=== PATIENT | female | born 1930 | race Caucasian/White ===

== ENCOUNTER 2021-04-03 17:05 | Inpatient (IN) | payer MEDICARE ==
[2021-04-03] MEDS ORDERED: SODIUM CHLORIDE 0.9% 500 ML INFUS.BAG IV ONE ×2 (17:18→18:07)
[2021-04-03 17:59] LABS: BASO % 0.3 % (0-2.0); EOS % 0.2 % (0-4.5); HEMATOCRIT 34.2 % (32.4-45.2); HEMOGLOBIN 11.1 GM/dl (10.7-15.3); LYMPH % 14.3 % (8-40); MCH 30.1 pg (25.7-33.7); MCHC 32.5 g/dl (32.0-36.0); MEAN CELL VOLUME 92.5 fl (80-96); MEAN PLT VOLUME 7.2 fl (7.5-11.1); MONO % 6.5 % (3.8-10.2); NEUT % 78.7 % (42.8-82.8); PLATELET COUNT 434 10^3/uL (134-434); WHITE BLOOD COUNT 10.4 K/mm3 (4.0-10.8)
[2021-04-03 18:02] LABS: ALK PHOS 71 U/L (45-117); ANION GAP 14 MMOL/L (8-16); BILIRUBIN,TOTAL 0.5 mg/dl (0.2-1); CALCIUM 8.2 mg/dl (8.5-10); CHLORIDE 76 mmol/L (98-107); CO2 22 mmol/L (21-32); CREATININE 0.7 mg/dl (0.55-1.3); GLUCOSE,RANDOM 113 mg/dl (74-106); MAGNESIUM 1.9 mg/dL (1.8-2.4); PHOSPHOROUS 3.9 mg/dl (2.5-4.9); SGOT/AST 21 U/L (15-37); SGPT/ALT 14 U/L (13-61); TOT PROT 6.5 g/dl (6.4-8.2)
[2021-04-03 18:04] LABS: SODIUM 112 mmol/L (136-145)
[2021-04-03 19:48] LABS: ALBUMIN 2.6 g/dl (3.4-5.0); BILIRUBIN,TOTAL 0.7 mg/dl (0.2-1); CALCIUM 7.4 mg/dl (8.5-10); CREATININE 0.6 mg/dl (0.55-1.3); TOT PROT 5.8 g/dl (6.4-8.2)
[2021-04-03] MEDS ORDERED: SODIUM CHLORIDE 1,000 ML IV SCH (20:15)
[2021-04-03 20:25] LABS: EPITHELIAL CELLS FEW /hpf
[2021-04-03 23:27] LABS: CALCIUM 7.5 mg/dl (8.5-10); CREATININE 0.6 mg/dl (0.55-1.3)
[2021-04-04] MEDS ORDERED: SODIUM CHLORIDE 1,000 ML IV SCH (00:06)
[2021-04-04 06:29] LABS: BLOOD UREA NITROGEN 13.9 mg/dL (7-18)
[2021-04-04 06:32] LABS: CREATININE 0.4 mg/dL (0.55-1.3)
[2021-04-04 07:19] LABS: BLOOD UREA NITROGEN 12.5 mg/dL (7-18); CALCIUM 7.4 mg/dL (8.5-10.1)
[2021-04-04 07:23] LABS: CREATININE 0.5 mg/dL (0.55-1.3)
[2021-04-04] MEDS ORDERED: DESMOPRESSIN ACETATE 4 MCG/ML AMP IVPB ONE (07:27)
[2021-04-04] MEDS ORDERED: DEXTROSE 5%-WATER - 1,000 ML IV SCH (07:30)
[2021-04-04 07:58] LABS: HEMOGLOBIN 9.9 GM/dl (10.7-15.3); MCH 31.8 pg (25.7-33.7); MCHC 34.4 g/dl (32.0-36.0); MEAN CELL VOLUME 92.6 fl (80-96); MEAN PLT VOLUME 7.1 fl (7.5-11.1); PLATELET COUNT 328 10^3/uL (134-434); RBC 3.13 M/mm3 (3.60-5.2); RDW 12.3 % (11.6-15.6); WHITE BLOOD COUNT 4.5 K/mm3 (4.0-10.8)
[2021-04-04 08:04] LABS: ACTIVATED PTT 22.4 SECONDS (25.2-36.5)
[2021-04-04 08:08] LABS: INR 1.01 (0.82-1.09); PROTHROMBIN TIME (PATIENT) 11.3 SEC (10.2-13.0)
[2021-04-04] MEDS ORDERED: DESMOPRESSIN ACETATE 2 MCG in SODIUM CHLORIDE 50 ML IVPB ONE (08:15)
[2021-04-04] MEDS: ENOXAPARIN NA (PORCINE) 40 MG/0.4 ML DISP.SYRIN SQ SCH (09:05)
[2021-04-04] MEDS ORDERED: cefTRIAXone SODIUM 1 GM VIAL ONE (09:51)
[2021-04-04] MEDS ORDERED: DEXTROSE 5%-WATER - 50 ML IVPB ONE (09:52)
[2021-04-04] MEDS: CEFTRIAXONE 1 GM in DEXTROSE 5%-WATER - 50 ML IVPB SCH (09:57)
[2021-04-04 12:53] LABS: CALCIUM 7.5 mg/dl (8.5-10); CREATININE 0.5 mg/dl (0.55-1.3)
[2021-04-04] MEDS ORDERED: SODIUM CHLORIDE 250 ML IV STA ×3 (14:07→18:32)
[2021-04-04 16:16] VITALS: BMI 24.8
[2021-04-04 16:31] LABS: CALCIUM 7.5 mg/dl (8.5-10); CREATININE 0.5 mg/dl (0.55-1.3)
[2021-04-05 03:46] LABS: BLOOD UREA NITROGEN 10.6 mg/dL (7-18); CALCIUM 7.5 mg/dL (8.5-10.1)
[2021-04-05 03:49] LABS: CREATININE 0.5 mg/dL (0.55-1.3)
[2021-04-05 08:09] LABS: CALCIUM 7.6 mg/dl (8.5-10); CREATININE 0.5 mg/dl (0.55-1.3)
[2021-04-05] MEDS ORDERED: SODIUM CHLORIDE 1,000 ML IV SCH (08:45)
[2021-04-05] MEDS ORDERED: DEXTROSE 5%-WATER - 50 ML IVPB ONE ×3 (09:47→18:15)
[2021-04-05] MEDS ORDERED: cefTRIAXone SODIUM 1 GM VIAL ONE (09:47)
[2021-04-05] MEDS: CEFTRIAXONE 1 GM in DEXTROSE 5%-WATER - 50 ML IVPB SCH (09:55)
[2021-04-05] MEDS: ENOXAPARIN NA (PORCINE) 40 MG/0.4 ML DISP.SYRIN SQ SCH (09:57)
[2021-04-05] MEDS: SODIUM CHLORIDE 1 GM TABLET PO SCH ×2 (10:36→21:47)
[2021-04-05] MEDS ORDERED: PIPERACILLIN/TAZOBACTAM 3.375 GM VIAL IVPB ONE ×2 (12:14→18:14)
[2021-04-05] MEDS: PIPERACILLIN/TAZOB 3.375 GM 3.375 GM in DEXTROSE 5%-WATER - 50 ML IVPB SCH ×2 (12:24→18:34)
[2021-04-05 13:36] LABS: CALCIUM 7.7 mg/dl (8.5-10); CREATININE 0.5 mg/dl (0.55-1.3)
[2021-04-05] MEDS ORDERED: PT OWN MED DRAWER 7, Y5N ONE (16:52)
[2021-04-05 17:04] LABS: CALCIUM 7.6 mg/dl (8.5-10); CREATININE 0.6 mg/dl (0.55-1.3)
[2021-04-05] MEDS: CALCIUM CARBONATE 650 MG TABLET PO SCH ×2 (18:34→21:47)
[2021-04-06] MEDS ORDERED: PIPERACILLIN/TAZOBACTAM 3.375 GM VIAL IVPB ONE ×2 (02:13→08:55)
[2021-04-06] MEDS ORDERED: DEXTROSE 5%-WATER - 50 ML IVPB ONE ×2 (02:13→08:56)
[2021-04-06] MEDS: PIPERACILLIN/TAZOB 3.375 GM 3.375 GM in DEXTROSE 5%-WATER - 50 ML IVPB SCH ×3 (02:39→18:00)
[2021-04-06 07:58] LABS: BASO % 0.5 % (0-2.0); EOS % 1.5 % (0-4.5); HEMATOCRIT 27.5 % (32.4-45.2); HEMOGLOBIN 9.4 GM/dl (10.7-15.3); LYMPH % 23.7 % (8-40); MCH 31.8 pg (25.7-33.7); MCHC 34.3 g/dl (32.0-36.0); MEAN CELL VOLUME 92.6 fl (80-96); MEAN PLT VOLUME 7.4 fl (7.5-11.1); MONO % 7.4 % (3.8-10.2); NEUT % 66.9 % (42.8-82.8); PLATELET COUNT 354 10^3/uL (134-434); RBC 2.97 M/mm3 (3.60-5.2); RDW 12.7 % (11.6-15.6); WHITE BLOOD COUNT 6.3 K/mm3 (4.0-10.8)
[2021-04-06 08:22] LABS: ALBUMIN 2.3 g/dl (3.4-5.0); BILIRUBIN,TOTAL 0.5 mg/dl (0.2-1); CREATININE 0.5 mg/dl (0.55-1.3); MAGNESIUM 1.7 mg/dL (1.8-2.4)
[2021-04-06] MEDS ORDERED: PT OWN MED DRAWER 7, Y5N ONE (08:55)
[2021-04-06] MEDS: SODIUM CHLORIDE 1 GM TABLET PO SCH ×2 (09:15→21:40)
[2021-04-06] MEDS: MAGNESIUM OXIDE 400 MG TABLET (FP) PO SCH ×2 (09:15→21:40)
[2021-04-06] MEDS: CALCIUM CARBONATE 650 MG TABLET PO SCH ×2 (09:16→21:40)
[2021-04-06] MEDS: ENOXAPARIN NA (PORCINE) 40 MG/0.4 ML DISP.SYRIN SQ SCH (09:16)
[2021-04-07] MEDS: PIPERACILLIN/TAZOB 3.375 GM 3.375 GM in DEXTROSE 5%-WATER - 50 ML IVPB SCH ×2 (01:55→11:01)
[2021-04-07 07:33] LABS: EOS % 2.3 % (0-4.5); HEMATOCRIT 28.5 % (32.4-45.2); HEMOGLOBIN 9.4 GM/dl (10.7-15.3); LYMPH % 30.9 % (8-40); MCH 30.7 pg (25.7-33.7); MCHC 33.1 g/dl (32.0-36.0); MEAN CELL VOLUME 92.6 fl (80-96); MONO % 9.5 % (3.8-10.2); NEUT % 56.3 % (42.8-82.8); PLATELET COUNT 376 10^3/uL (134-434); RBC 3.08 M/mm3 (3.60-5.2); RDW 12.8 % (11.6-15.6); WHITE BLOOD COUNT 6.1 K/mm3 (4.0-10.8)
[2021-04-07 07:47] LABS: ALBUMIN 2.4 g/dl (3.4-5.0); BILIRUBIN,TOTAL 0.4 mg/dl (0.2-1); CALCIUM 8.2 mg/dl (8.5-10); CREATININE 0.5 mg/dl (0.55-1.3); MAGNESIUM 1.8 mg/dL (1.8-2.4); TOT PROT 5.2 g/dl (6.4-8.2)
[2021-04-07] MEDS ORDERED: PIPERACILLIN/TAZOBACTAM 3.375 GM VIAL IVPB ONE (10:47)
[2021-04-07] MEDS ORDERED: DEXTROSE 5%-WATER - 50 ML IVPB ONE (10:47)
[2021-04-07] MEDS: MAGNESIUM OXIDE 400 MG TABLET (FP) PO SCH ×2 (11:01→22:16)
[2021-04-07] MEDS: ENOXAPARIN NA (PORCINE) 40 MG/0.4 ML DISP.SYRIN SQ SCH (11:02)
[2021-04-07] MEDS: CALCIUM CARBONATE 650 MG TABLET PO SCH ×2 (11:02→22:16)
[2021-04-07] MEDS ORDERED: DEXTROSE 5%-WATER 100 ML IVPB ONE ×2 (14:05→18:25)
[2021-04-07] MEDS ORDERED: MEROPENEM 1 GM VIAL (RESTRICTED TO ID) IVPB ONE ×2 (14:06→18:26)
[2021-04-07] MEDS: MEROPENEM 1 GM in DEXTROSE 5%-WATER 100 ML IVPB SCH ×3 (14:11→18:45)
[2021-04-07] MEDS: SODIUM CHLORIDE 1 GM TABLET PO SCH ×2 (14:11→22:16)
[2021-04-07] MEDS ORDERED: PT OWN MED DRAWER 7, Y5N ONE ×2 (21:19→22:42)
[2021-04-08] MEDS ORDERED: DEXTROSE 5%-WATER 100 ML IVPB ONE ×3 (01:31→15:08)
[2021-04-08] MEDS ORDERED: MEROPENEM 1 GM VIAL (RESTRICTED TO ID) IVPB ONE ×3 (01:32→15:08)
[2021-04-08] MEDS: MEROPENEM 1 GM in DEXTROSE 5%-WATER 100 ML IVPB SCH ×4 (01:42→18:05)
[2021-04-08] MEDS: SODIUM CHLORIDE 1 GM TABLET PO SCH ×3 (06:12→21:10)
[2021-04-08 08:26] LABS: CALCIUM 8.1 mg/dl (8.5-10); CREATININE 0.5 mg/dl (0.55-1.3); MAGNESIUM 1.7 mg/dL (1.8-2.4)
[2021-04-08] MEDS ORDERED: PT OWN MED DRAWER 7, Y5N ONE ×2 (09:29→20:21)
[2021-04-08] MEDS: ENOXAPARIN NA (PORCINE) 40 MG/0.4 ML DISP.SYRIN SQ SCH (10:25)
[2021-04-08] MEDS: MAGNESIUM OXIDE 400 MG TABLET (FP) PO SCH ×2 (10:35→21:10)
[2021-04-08] MEDS: CALCIUM CARBONATE 650 MG TABLET PO SCH ×2 (10:50→21:11)
[2021-04-08] MEDS: AMINO ACIDS/PROTEIN HYDROLYS 30 ML LIQUID.PKT PO SCH (17:17)
[2021-04-09] MEDS: MEROPENEM 1 GM in DEXTROSE 5%-WATER 100 ML IVPB SCH ×3 (01:50→18:43)
[2021-04-09] MEDS ORDERED: MEROPENEM 1 GM VIAL (RESTRICTED TO ID) IVPB ONE ×3 (03:46→17:17)
[2021-04-09] MEDS ORDERED: DEXTROSE 5%-WATER 100 ML IVPB ONE ×3 (03:46→17:16)
[2021-04-09] MEDS: SODIUM CHLORIDE 1 GM TABLET PO SCH ×3 (05:15→21:23)
[2021-04-09 08:16] LABS: BASO % 4.2 % (0-2.0); EOS % 2.8 % (0-4.5); HEMATOCRIT 27.7 % (32.4-45.2); HEMOGLOBIN 9.2 GM/dl (10.7-15.3); LYMPH % 30.7 % (8-40); MCHC 33.2 g/dl (32.0-36.0); MEAN CELL VOLUME 93.4 fl (80-96); MEAN PLT VOLUME 7.3 fl (7.5-11.1); MONO % 9.8 % (3.8-10.2); NEUT % 52.5 % (42.8-82.8); PLATELET COUNT 293 10^3/uL (134-434); RBC 2.97 M/mm3 (3.60-5.2); RDW 12.7 % (11.6-15.6); WHITE BLOOD COUNT 5.3 K/mm3 (4.0-10.8)
[2021-04-09 08:21] LABS: ALBUMIN 2.3 g/dl (3.4-5.0); BILIRUBIN,TOTAL 0.6 mg/dl (0.2-1); CALCIUM 8.3 mg/dl (8.5-10); CREATININE 0.4 mg/dl (0.55-1.3); MAGNESIUM 1.7 mg/dL (1.8-2.4); TOT PROT 5.2 g/dl (6.4-8.2)
[2021-04-09] MEDS: ENOXAPARIN NA (PORCINE) 40 MG/0.4 ML DISP.SYRIN SQ SCH (10:08)
[2021-04-09] MEDS: MAGNESIUM OXIDE 400 MG TABLET (FP) PO SCH ×2 (10:09→21:23)
[2021-04-09] MEDS: AMINO ACIDS/PROTEIN HYDROLYS 30 ML LIQUID.PKT PO SCH ×2 (10:09→18:43)
[2021-04-09] MEDS ORDERED: PT OWN MED DRAWER 7, Y5N ONE ×2 (10:10→21:11)
[2021-04-09] MEDS: CALCIUM CARBONATE 650 MG TABLET PO SCH ×2 (10:11→21:23)
[2021-04-09] MEDS ORDERED: MAGNESIUM SULF 50% (8.12 MEQ/2 ML-1 GM VIAL) IVPB ONE (11:12)
[2021-04-10] MEDS: MEROPENEM 1 GM in DEXTROSE 5%-WATER 100 ML IVPB SCH ×2 (02:05→13:59)
[2021-04-10] MEDS ORDERED: DEXTROSE 5%-WATER 100 ML IVPB ONE ×2 (03:10→13:25)
[2021-04-10] MEDS ORDERED: MEROPENEM 1 GM VIAL (RESTRICTED TO ID) IVPB ONE ×2 (03:10→13:25)
[2021-04-10] MEDS: SODIUM CHLORIDE 1 GM TABLET PO SCH ×2 (06:00→13:59)
[2021-04-10 06:42] VITALS: PULSE 77
[2021-04-10 07:43] LABS: CALCIUM 8.1 mg/dl (8.5-10); CREATININE 0.4 mg/dl (0.55-1.3)
[2021-04-10] MEDS ORDERED: SODIUM CHLORIDE 500 ML IV STA (07:58)
[2021-04-10] MEDS: CALCIUM CARBONATE 650 MG TABLET PO SCH (13:58)
[2021-04-10] MEDS: AMINO ACIDS/PROTEIN HYDROLYS 30 ML LIQUID.PKT PO SCH (13:58)
[2021-04-10] MEDS: MAGNESIUM OXIDE 400 MG TABLET (FP) PO SCH (13:59)
[2021-04-10] MEDS: ENOXAPARIN NA (PORCINE) 40 MG/0.4 ML DISP.SYRIN SQ SCH (13:59)
[2021-04-10 14:13] VITALS: BP 94/52; TEMP 98.3
== END 2021-04-10 14:52 | disposition home or self-care (01) | DRG 422 ==
LOC: FER 17:05 → FM/S 20:03
PROVIDERS: ADMIT Internal Medicine; ATTEND Nurse Practitioner Acute Care
DX: E87.1 Hypo-osmolality and hyponatremia (principal); E86.0 Dehydration; G93.41 Metabolic encephalopathy; I10 Essential (primary) hypertension; R53.1 Weakness; N39.0 Urinary tract infection, site not specified; B96.20 Unspecified Escherichia coli [E. coli] as the cause of diseases classified elsewhere; D64.9 Anemia, unspecified; Z85.3 Personal history of malignant neoplasm of breast; Z16.12 Extended spectrum beta lactamase (ESBL) resistance
CPT/HCPCS: 36415; 36569; 71045-TC-FY; 80048; 80053; 81003; 81015; 82533; 82550; 83735; 83930; 83935; 84100; 84300; 84443; 84484; 85025; 85027; 85610; 85730; 87086; 87186; 93005; 97116-GP; 97162-GP; 99291; C9803; J2597; U0003; U0005

== ENCOUNTER 2021-04-16 10:08 | Inpatient (IN) | payer MEDICARE ==
[2021-04-16 11:37] LABS: BASO % 4.4 % (0-2.0); EOS % 1.6 % (0-4.5); HEMATOCRIT 27.8 % (32.4-45.2); HEMOGLOBIN 9.2 GM/dl (10.7-15.3); LYMPH % 31.9 % (8-40); MCH 31.1 pg (25.7-33.7); MEAN CELL VOLUME 94.2 fl (80-96); MEAN PLT VOLUME 7.6 fl (7.5-11.1); NEUT % 53.1 % (42.8-82.8); PLATELET COUNT 263 10^3/uL (134-434); RBC 2.95 M/mm3 (3.60-5.2); RDW 13.8 % (11.6-15.6); WHITE BLOOD COUNT 5.1 K/mm3 (4.0-10.8)
[2021-04-16 11:46] LABS: ALBUMIN 2.4 g/dl (3.4-5.0); ALK PHOS 69 U/L (45-117); ANION GAP 8 MMOL/L (8-16); BILIRUBIN,TOTAL 0.6 mg/dl (0.2-1); CALCIUM 8.2 mg/dl (8.5-10); CHLORIDE 96 mmol/L (98-107); CO2 26 mmol/L (21-32); CREATININE 0.5 mg/dl (0.55-1.3); GLUCOSE,RANDOM 95 mg/dl (74-106); SGOT/AST 19 U/L (15-37); SGPT/ALT 13 U/L (13-61); SODIUM 130 mmol/L (136-145); TOT PROT 5.8 g/dl (6.4-8.2)
[2021-04-16 12:01] LABS: EPITHELIAL CELLS RARE /hpf
[2021-04-16] MEDS ORDERED: ERTAPENEM SODIUM 1 GM VIAL ONE (15:21)
[2021-04-16] MEDS ORDERED: ERTAPENEM SODIUM 1 GM/50 ML PRE-DOCKED IVPB SCH (15:30)
[2021-04-16 16:18] LABS: N-TERMINAL BNP 499.4 pg/ml (5-450)
[2021-04-16] MEDS: ERTAPENEM SODIUM 1 GM in SODIUM CHLORIDE 50 ML IVPB SCH (17:46)
[2021-04-16] MEDS: SODIUM CHLORIDE 1 GM TABLET PO SCH (21:47)
[2021-04-17] MEDS: SODIUM CHLORIDE 1 GM TABLET PO SCH (05:02)
[2021-04-17 08:13] LABS: EOS % 2.8 % (0-4.5); HEMATOCRIT 25.1 % (32.4-45.2); HEMOGLOBIN 8.5 GM/dl (10.7-15.3); LYMPH % 31.6 % (8-40); MCH 31.6 pg (25.7-33.7); MCHC 33.8 g/dl (32.0-36.0); MEAN CELL VOLUME 93.5 fl (80-96); MEAN PLT VOLUME 7.8 fl (7.5-11.1); MONO % 7.2 % (3.8-10.2); NEUT % 57.4 % (42.8-82.8); PLATELET COUNT 241 10^3/uL (134-434); RBC 2.69 M/mm3 (3.60-5.2); RDW 13.8 % (11.6-15.6); WHITE BLOOD COUNT 4.7 K/mm3 (4.0-10.8)
[2021-04-17 08:18] LABS: INR 1.04 (0.82-1.09); PROTHROMBIN TIME (PATIENT) 11.6 SEC (10.2-13.0)
[2021-04-17 08:22] LABS: ALBUMIN 2.2 g/dl (3.4-5.0); BILIRUBIN,TOTAL 0.8 mg/dl (0.2-1); CALCIUM 8.1 mg/dl (8.5-10); CREATININE 0.5 mg/dl (0.55-1.3); MAGNESIUM 1.7 mg/dL (1.8-2.4); TOT PROT 5.2 g/dl (6.4-8.2)
[2021-04-17] MEDS ORDERED: ERTAPENEM SODIUM 1 GM VIAL ONE (09:27)
[2021-04-17] MEDS ORDERED: SODIUM CHLORIDE 50 ML IVPB ONE (09:28)
[2021-04-17] MEDS: ERTAPENEM SODIUM 1 GM in SODIUM CHLORIDE 50 ML IVPB SCH (10:18)
[2021-04-17] MEDS ORDERED: MAGNESIUM SULF 50% (8.12 MEQ/2 ML-1 GM VIAL) IVPB ONE (10:21)
[2021-04-17] MEDS ORDERED: MAGNESIUM 1GM/D5W - 1 GM/100 ML IVPB IVPB ONE (10:30)
[2021-04-17] MEDS ORDERED: FUROSEMIDE 40 MG/4 ML INJECTABLE VIAL IVPUSH ONE (12:15)
[2021-04-17] MEDS: ENOXAPARIN NA (PORCINE) 40 MG/0.4 ML DISP.SYRIN SQ SCH (13:59)
[2021-04-17] MEDS ORDERED: SODIUM CHLORIDE 1 GM TABLET PO SCH (14:00)
[2021-04-17 16:34] VITALS: BMI 25.2
[2021-04-18 08:09] LABS: BASO % 1.3 % (0-2.0); EOS % 4.2 % (0-4.5); HEMATOCRIT 26.3 % (32.4-45.2); HEMOGLOBIN 8.6 GM/dl (10.7-15.3); LYMPH % 34.1 % (8-40); MCH 30.5 pg (25.7-33.7); MCHC 32.7 g/dl (32.0-36.0); MEAN CELL VOLUME 93.2 fl (80-96); MEAN PLT VOLUME 7.7 fl (7.5-11.1); MONO % 8.6 % (3.8-10.2); NEUT % 51.8 % (42.8-82.8); PLATELET COUNT 268 10^3/uL (134-434); RBC 2.83 M/mm3 (3.60-5.2); RDW 13.6 % (11.6-15.6); WHITE BLOOD COUNT 4.8 K/mm3 (4.0-10.8)
[2021-04-18 08:14] LABS: ALBUMIN 2.2 g/dl (3.4-5.0); BILIRUBIN,TOTAL 0.4 mg/dl (0.2-1); CALCIUM 8.1 mg/dl (8.5-10); CREATININE 0.5 mg/dl (0.55-1.3); MAGNESIUM 1.8 mg/dL (1.8-2.4); TOT PROT 5.3 g/dl (6.4-8.2)
[2021-04-18] MEDS ORDERED: ERTAPENEM SODIUM 1 GM VIAL ONE (09:23)
[2021-04-18] MEDS ORDERED: SODIUM CHLORIDE 50 ML IVPB ONE (09:23)
[2021-04-18] MEDS: ERTAPENEM SODIUM 1 GM in SODIUM CHLORIDE 50 ML IVPB SCH (09:36)
[2021-04-18] MEDS: POTASSIUM CHLORIDE TABS 20 MEQ TABLET.ER (FP) PO SCH ×2 (09:36→14:39)
[2021-04-18] MEDS: ENOXAPARIN NA (PORCINE) 40 MG/0.4 ML DISP.SYRIN SQ SCH (09:36)
[2021-04-18] MEDS ORDERED: FUROSEMIDE 40 MG/4 ML INJECTABLE VIAL IVPUSH SCH (10:00)
[2021-04-19 08:16] LABS: BASO % 3.1 % (0-2.0); EOS % 4.3 % (0-4.5); HEMATOCRIT 25.8 % (32.4-45.2); HEMOGLOBIN 8.7 GM/dl (10.7-15.3); LYMPH % 35.3 % (8-40); MCH 31.4 pg (25.7-33.7); MCHC 33.7 g/dl (32.0-36.0); MEAN CELL VOLUME 93.4 fl (80-96); MEAN PLT VOLUME 8.2 fl (7.5-11.1); MONO % 8.9 % (3.8-10.2); NEUT % 48.4 % (42.8-82.8); PLATELET COUNT 276 10^3/uL (134-434); RBC 2.76 M/mm3 (3.60-5.2); RDW 13.4 % (11.6-15.6); WHITE BLOOD COUNT 5.2 K/mm3 (4.0-10.8)
[2021-04-19 08:24] LABS: ALBUMIN 2.4 g/dl (3.4-5.0); BILIRUBIN,TOTAL 0.5 mg/dl (0.2-1); CALCIUM 8.4 mg/dl (8.5-10); CREATININE 0.6 mg/dl (0.55-1.3); MAGNESIUM 1.8 mg/dL (1.8-2.4); TOT PROT 5.4 g/dl (6.4-8.2)
[2021-04-19] MEDS ORDERED: ERTAPENEM SODIUM 1 GM VIAL ONE (10:05)
[2021-04-19] MEDS ORDERED: SODIUM CHLORIDE 50 ML IVPB ONE (10:05)
[2021-04-19] MEDS: ENOXAPARIN NA (PORCINE) 40 MG/0.4 ML DISP.SYRIN SQ SCH (10:09)
[2021-04-19] MEDS: FUROSEMIDE 40 MG TABLET (FP) PO SCH (10:09)
[2021-04-19] MEDS: ERTAPENEM SODIUM 1 GM in SODIUM CHLORIDE 50 ML IVPB SCH (10:09)
[2021-04-19 16:47] LABS: IRON SERUM 38 ug/dL (50-175); TOTAL IRON BINDING CAPACITY 202 ug/dL (250-450)
[2021-04-20 08:35] LABS: CALCIUM 8.5 mg/dl (8.5-10); CREATININE 0.6 mg/dl (0.55-1.3)
[2021-04-20] MEDS ORDERED: ERTAPENEM SODIUM 1 GM VIAL ONE (09:57)
[2021-04-20] MEDS ORDERED: SODIUM CHLORIDE 50 ML IVPB ONE (09:57)
[2021-04-20] MEDS: ENOXAPARIN NA (PORCINE) 40 MG/0.4 ML DISP.SYRIN SQ SCH (10:11)
[2021-04-20] MEDS: FUROSEMIDE 40 MG TABLET (FP) PO SCH (10:12)
[2021-04-20] MEDS: ERTAPENEM SODIUM 1 GM in SODIUM CHLORIDE 50 ML IVPB SCH (10:12)
[2021-04-20] MEDS ORDERED: FUROSEMIDE 40 MG TABLET (FP) PO ONE (12:10)
[2021-04-20] MEDS: FUROSEMIDE 40 MG/4 ML INJECTABLE VIAL IVPUSH SCH (12:37)
[2021-04-21 07:07] VITALS: BP 89/55; PULSE 88; TEMP 98.5
[2021-04-21] MEDS ORDERED: SODIUM CHLORIDE 50 ML IVPB ONE (09:08)
[2021-04-21] MEDS ORDERED: ERTAPENEM SODIUM 1 GM VIAL ONE (09:08)
[2021-04-21] MEDS: ERTAPENEM SODIUM 1 GM in SODIUM CHLORIDE 50 ML IVPB SCH (09:13)
[2021-04-21] MEDS: ENOXAPARIN NA (PORCINE) 40 MG/0.4 ML DISP.SYRIN SQ SCH (09:13)
[2021-04-21] MEDS: FUROSEMIDE 40 MG/4 ML INJECTABLE VIAL IVPUSH SCH (09:14)
[2021-04-21] MEDS ORDERED: FUROSEMIDE 40 MG/4 ML INJECTABLE VIAL IVPUSH SCH (10:00)
[2021-04-21 10:11] LABS: BLOOD UREA NITROGEN 13.8 mg/dL (7-18); CALCIUM 8.5 mg/dL (8.5-10.1)
[2021-04-21 10:14] LABS: CREATININE 0.7 mg/dL (0.55-1.3)
== END 2021-04-21 13:32 | disposition home or self-care (01) | DRG 194 ==
LOC: FER 10:08 → FM/S 14:33
PROVIDERS: ADMIT Internal Medicine; ATTEND Nurse Practitioner Acute Care
DX: I11.0 Hypertensive heart disease with heart failure (principal); I50.31 Acute diastolic (congestive) heart failure; I82.621 Acute embolism and thrombosis of deep veins of right upper extremity; I45.10 Unspecified right bundle-branch block; E87.1 Hypo-osmolality and hyponatremia; R60.9 Edema, unspecified; N39.0 Urinary tract infection, site not specified; B96.20 Unspecified Escherichia coli [E. coli] as the cause of diseases classified elsewhere; I82.611 Acute embolism and thrombosis of superficial veins of right upper extremity; D64.9 Anemia, unspecified; E87.6 Hypokalemia
CPT/HCPCS: 36415; 71045-TC-FY; 71250-TC; 80048; 80053; 81003; 81015; 82272; 82550; 82607; 82728; 83540; 83550; 83735; 83880; 84484; 85025; 85610; 85730; 87040; 87086; 93005; 93306-TC; 93970-TC; 93971; 97116-GP; 97162-GP; 99285-25; C9803; U0003; U0005

== ENCOUNTER 2021-08-18 12:21 | Inpatient (IN) | payer OTHER ==
[2021-08-18 14:23] LABS: ALBUMIN 2.1 g/dl (3.4-5.0); BILIRUBIN,TOTAL 0.3 mg/dl (0.2-1); CALCIUM 8.5 mg/dl (8.5-10); CREATININE 0.8 mg/dl (0.55-1.3)
[2021-08-18] MEDS ORDERED: CEFTRIAXONE 1 GM in DEXTROSE 5%-WATER - 100 ML IVPB ONE (14:59)
[2021-08-18 16:06] LABS: EPITHELIAL CELLS MANY /hpf; URINE HYALINE CAST 0-2 /lpf
[2021-08-18] MEDS ORDERED: cefTRIAXone SODIUM 1 GM VIAL ONE (16:10)
[2021-08-18 16:30] LABS: BASO % 0.9 % (0-2.0); EOS % 0.9 % (0-4.5); HEMATOCRIT 23.2 % (32.4-45.2); HEMOGLOBIN 7.7 GM/dL (10.7-15.3); LYMPH % 9.8 % (8-40); MEAN CELL VOLUME 78.8 fl (80-96); MEAN PLT VOLUME 7.1 fl (7.5-11.1); MONO % 6.7 % (3.8-10.2); NEUT % 81.7 % (42.8-82.8); PLATELET COUNT 523 10^3/uL (134-434); RBC 2.95 M/mm3 (3.60-5.2); RDW 17.4 % (11.6-15.6); WHITE BLOOD COUNT 12.4 K/mm3 (4.0-10.0)
[2021-08-18] MEDS ORDERED: AZITHROMYCIN IVPB 500 MG in DEXTROSE 5%-WATER - 250 ML IVPB ONE (16:38)
[2021-08-18] MEDS ORDERED: SODIUM CHLORIDE 0.9% 1000 ML INFUS.BAG IV ONE (16:39)
[2021-08-18] MEDS ORDERED: ERTAPENEM SODIUM 1 GM in SODIUM CHLORIDE 50 ML IVPB ONE (17:38)
[2021-08-18] MEDS ORDERED: AZITHROMYCIN 500 MG VIAL IVPB ONE (18:39)
[2021-08-18] MEDS ORDERED: FUROSEMIDE 40 MG/4 ML INJECTABLE VIAL IVPUSH ONE (21:14)
[2021-08-18] MEDS: FERROUS SO4 325 MG TABLET (FP) PO SCH (22:13)
[2021-08-19 08:26] LABS: BILIRUBIN,TOTAL 0.4 mg/dl (0.2-1); CALCIUM 8.2 mg/dl (8.5-10); CREATININE 0.9 mg/dl (0.55-1.3); TOT PROT 6.9 g/dl (6.4-8.2)
[2021-08-19] MEDS ORDERED: cefTRIAXone SODIUM 1 GM VIAL ONE (09:09)
[2021-08-19] MEDS ORDERED: DEXTROSE 5%-WATER - 50 ML IVPB ONE (09:09)
[2021-08-19] MEDS ORDERED: SODIUM CHLORIDE 1 GM TABLET PO ONE (09:15)
[2021-08-19] MEDS: FERROUS SO4 325 MG TABLET (FP) PO SCH ×2 (09:37→21:43)
[2021-08-19] MEDS: FUROSEMIDE 40 MG/4 ML INJECTABLE VIAL IVPUSH SCH (09:37)
[2021-08-19] MEDS: CEFTRIAXONE 1 GM in DEXTROSE 5%-WATER - 50 ML IVPB SCH (09:37)
[2021-08-19] MEDS ORDERED: ACETAMINOPHEN 500 MG TABLET (FP) PO PRN (16:11)
[2021-08-19] MEDS: ENOXAPARIN NA (PORCINE) 40 MG/0.4 ML DISP.SYRIN SQ SCH (21:43)
[2021-08-20 08:17] LABS: ALBUMIN 2.1 g/dl (3.4-5.0); BILIRUBIN,TOTAL 0.7 mg/dl (0.2-1); CALCIUM 8.4 mg/dl (8.5-10); CREATININE 0.7 mg/dl (0.55-1.3)
[2021-08-20] MEDS ORDERED: cefTRIAXone SODIUM 1 GM VIAL ONE (08:59)
[2021-08-20] MEDS ORDERED: DEXTROSE 5%-WATER - 50 ML IVPB ONE (09:00)
[2021-08-20] MEDS: CEFTRIAXONE 1 GM in DEXTROSE 5%-WATER - 50 ML IVPB SCH (09:23)
[2021-08-20] MEDS: FUROSEMIDE 40 MG/4 ML INJECTABLE VIAL IVPUSH SCH (09:24)
[2021-08-20] MEDS: ENOXAPARIN NA (PORCINE) 40 MG/0.4 ML DISP.SYRIN SQ SCH (09:24)
[2021-08-20] MEDS: FERROUS SO4 325 MG TABLET (FP) PO SCH ×2 (09:24→21:47)
[2021-08-20] MEDS: SODIUM CHLORIDE 1 GM TABLET PO SCH ×2 (09:25→21:47)
[2021-08-20 09:29] LABS: BASO % 1.2 % (0-2.0); EOS % 0.9 % (0-4.5); HEMATOCRIT 28.6 % (32.4-45.2); HEMOGLOBIN 9.5 GM/dL (10.7-15.3); LYMPH % 12.8 % (8-40); MCH 26.5 pg (25.7-33.7); MCHC 33.2 g/dl (32.0-36.0); MEAN CELL VOLUME 79.6 fl (80-96); MEAN PLT VOLUME 6.8 fl (7.5-11.1); MONO % 8.1 % (3.8-10.2); PLATELET COUNT 550 10^3/uL (134-434); RBC 3.59 M/mm3 (3.60-5.2); RDW 17.4 % (11.6-15.6); WHITE BLOOD COUNT 12.4 K/mm3 (4.0-10.0)
[2021-08-20 10:07] LABS: CARCINOEMBRYONIC ANTIGEN 3.6 ng/mL (0.0-4.7)
[2021-08-20 10:11] LABS: ERYTHROCYTE SEDIMENTATION RATE 106 mm/hr (0-30)
[2021-08-20] MEDS ORDERED: FUROSEMIDE 40 MG/4 ML INJECTABLE VIAL IVPUSH ONE (13:15)
[2021-08-20 15:54] VITALS: BMI 21.9
[2021-08-21 08:21] LABS: BILIRUBIN,TOTAL 0.5 mg/dl (0.2-1); CALCIUM 8.5 mg/dl (8.5-10); CREATININE 1.1 mg/dl (0.55-1.3)
[2021-08-21 09:44] LABS: BASO % 1.2 % (0-2.0); EOS % 0.2 % (0-4.5); HEMOGLOBIN 9.8 GM/dL (10.7-15.3); LYMPH % 12.2 % (8-40); MCH 26.2 pg (25.7-33.7); MCHC 32.7 g/dl (32.0-36.0); MEAN PLT VOLUME 7.1 fl (7.5-11.1); MONO % 7.5 % (3.8-10.2); NEUT % 78.9 % (42.8-82.8); PLATELET COUNT 590 10^3/uL (134-434); RBC 3.75 M/mm3 (3.60-5.2); RDW 17.6 % (11.6-15.6)
[2021-08-21] MEDS: FUROSEMIDE 40 MG/4 ML INJECTABLE VIAL IVPUSH SCH (11:03)
[2021-08-21] MEDS ORDERED: cefTRIAXone SODIUM 1 GM VIAL ONE (11:04)
[2021-08-21] MEDS ORDERED: DEXTROSE 5%-WATER - 50 ML IVPB ONE (11:04)
[2021-08-21] MEDS: FERROUS SO4 325 MG TABLET (FP) PO SCH ×2 (11:13→22:03)
[2021-08-21] MEDS: ENOXAPARIN NA (PORCINE) 40 MG/0.4 ML DISP.SYRIN SQ SCH (11:13)
[2021-08-21] MEDS: SODIUM CHLORIDE 1 GM TABLET PO SCH ×2 (11:13→22:03)
[2021-08-21] MEDS: CEFTRIAXONE 1 GM in DEXTROSE 5%-WATER - 50 ML IVPB SCH (11:14)
[2021-08-21] MEDS: AMOXICILLIN 500 MG CAPSULE (FP) PO SCH (22:03)
[2021-08-22] MEDS: AMOXICILLIN 500 MG CAPSULE (FP) PO SCH (06:16)
[2021-08-22] MEDS ORDERED: FUROSEMIDE 40 MG TABLET (FP) PO SCH (10:00)
[2021-08-22 10:03] VITALS: BP 98/62; PULSE 88; TEMP 98.9
[2021-08-22] MEDS: ENOXAPARIN NA (PORCINE) 40 MG/0.4 ML DISP.SYRIN SQ SCH (10:33)
[2021-08-22] MEDS: FERROUS SO4 325 MG TABLET (FP) PO SCH (10:33)
[2021-08-22] MEDS: SODIUM CHLORIDE 1 GM TABLET PO SCH (10:33)
[2021-08-22 10:46] LABS: BILIRUBIN,TOTAL 0.7 mg/dl (0.2-1); CALCIUM 8.5 mg/dl (8.5-10); TOT PROT 7.1 g/dl (6.4-8.2)
[2021-08-22 12:07] LABS: BASO % 1.3 % (0-2.0); EOS % 0.3 % (0-4.5); HEMATOCRIT 29.9 % (32.4-45.2); HEMOGLOBIN 9.6 GM/dL (10.7-15.3); LYMPH % 12.5 % (8-40); MCH 26.3 pg (25.7-33.7); MEAN PLT VOLUME 7.7 fl (7.5-11.1); MONO % 7.9 % (3.8-10.2); PLATELET COUNT 601 10^3/uL (134-434); RBC 3.64 M/mm3 (3.60-5.2)
== END 2021-08-22 15:10 | disposition home or self-care (01) | DRG 463 ==
LOC: FER 12:21 → FM/S 16:27
PROVIDERS: ADMIT Internal Medicine; ATTEND Internal Medicine
DX: N39.0 Urinary tract infection, site not specified (principal); I10 Essential (primary) hypertension; E87.1 Hypo-osmolality and hyponatremia; Z85.3 Personal history of malignant neoplasm of breast; R91.8 Other nonspecific abnormal finding of lung field; D64.9 Anemia, unspecified; R19.00 Intra-abdominal and pelvic swelling, mass and lump, unspecified site
CPT/HCPCS: 36415; 36430; 71045-TC-FY; 71250-TC; 74177-TC; 76856-TC; 80053; 81003; 81015; 82378; 82436; 82533; 83880; 83930; 83935; 84133; 84300; 84443; 84588; 85025; 85651; 86140; 86300; 86301; 86850; 86900; 86901; 86922; 87040; 87086; 87186; 87804; 93005; 99285-25; C9803; P9058; Q9967; U0003; U0005